=== PATIENT | female | born 1960 | race Caucasian/White ===

== ENCOUNTER 2020-11-14 17:02 | Emergency (ER) | payer OTHER, SELFPAY ==
[2020-11-14 17:06] VITALS: BP 141/73; PULSE 89; RESP 12; TEMP 36.6; O2SAT 98
[2020-11-14 17:12] VITALS: BP 141/73; PULSE 89; RESP 12; TEMP 36.6; O2SAT 98
--- NOTE | 2020-11-14 17:16 | ECG_ITS ---
SINUS BRADYCARDIA INCOMPLETE RIGHT BUNDLE BRANCH BLOCK BORDERLINE ST ABNORMALITY- ANTERIOR LEADS BASELINE ARTIFACT- II, III, AVR, AVL, AVF ABNORMAL ECG Electronically Signed On 11-15-2020 7:01:30 CDT by Walter Gonzalez D.O. NO PREVIOUS ECG AVAILABLE FOR COMPARISON [facility]
[2020-11-14 17:32] VITALS: BP 83/46; PULSE 68
[2020-11-14 17:32] LABS: Glucose Point of Care 100 (65-105)
--- NOTE | 2020-11-14 17:33 | ED.GENADULT ---
HPI - General Adult General Chief complaint: Unspecified Stated complaint: EYE REDNESS/DOESN'T FEEL RIGHT Time Seen by Provider: 11/14/20 17:05 Source: patient Mode of arrival: ambulatory Limitations: no limitations History of Present Illness HPI narrative: Uzma Caledrón is a 60 yo female with a PMH of hypothyroid and migraine who comes to express care with c/o not feeling well, non specific issues, Mild dizziness - initial BP slightly elevated but vague symptoms, EKG was run in patient's heart rate at 1-38. Blood pressure but her automatic monitor was 83/46. Patient was mildly obtunded, O2 sats decreased/MAP in the 60s. [place] called for transport to [facility] IV started by nurse EMS arrived and transported patient Related Data Home Medications Medication Instructions Recorded Confirmed levothyroxine 150 mcg capsule 150 mcg PO DAILY 05/23/20 05/23/20 sumatriptan succinate mg PO 11/14/20 Allergies Allergy/AdvReac Type Severity Reaction Status Date / Time Penicillins Allergy Unknown Verified 11/14/20 17:09 clarithromycin AdvReac Unknown NAUSEA Verified 05/23/20 11:06 Review of Systems Review of Systems: Narrative: CONSTITUTIONAL: Denies fever, chills, sweats. EYES: Denies visual changes, redness, discharge. ENT: Denies rhinorrhea, congestion, sore throat, otalgia. CARDIOVASCULAR: Denies chest pain, palpitations, edema. RESPIRATORY: Denies dyspnea, wheezing, cough GASTROINTESTINAL: Denies abdominal pain, nausea, vomiting, diarrhea. GENITOURINARY: Denies dysuria, hematuria, abnormal discharge SKIN: Denies rash or itching. NEUROLOGIC: Denies numbness, or focal weakness. [place] weak and out of sorts PSYCHIATRIC: Denies anxiety or depression. [facility] Past Medical History Medical History (Updated 11/14/20 @ 18:03 by Ania Ramirez CNP) Harmeet's disease Hypothyroidism Surgical History Surgical History History of lithotripsy Family History Family History Sibling Family history of thyroid disease Family history of mental disorder Depression Family history of lung cancer Family history of malignant neoplasm of breast in first degree relative Mother Family history of mental disorder Depression Hypertension Cerebrovascular accident Family history of diabetes mellitus in first degree relative Diabetes mellitus Father Family history of alcoholism Family history of liver disease Social History Social History Smoking status: Former smoker Smoking end date: 08/30/17 Alcohol intake: current Comments At time of signature, I agree with nursing past medical, surgical, social and family history. There is no relevant family history pertinent to the presenting complaint. Exam Narrative: Exam Narrative: GENERAL: This is a well-nourished, well-developed patient, in mild distress. States he feels weak and faint HEAD: normocephalic, atraumatic. EYES. Sclera clear/white. Vision is grossly intact. EARS: External ears normal, . Hearing grossly intact. NOSE: External nose normal without nasal discharge, nares without redness, no rhinorrhea. THROAT: Mucous membranes moist, NECK: Neck supple, CARDIOVASCULAR: Bradycardic rate and rhythm RESPIRATORY: Clear to auscultation. Breath sounds equal bilaterally. No wheezes, rales, or rhonchi. GASTROINTESTINAL: Abdomen soft, non-tender, SKIN: warm, intact with no suspicious lesions or rash, good texture and turgor. NEURO: awake, alert, and oriented to person, place and time. Patient is somewhat obtunded. EXTREMITIES: Normal range of motion. BACK: Nontender without deformity Course Course Emergency Course: Patient arrives at [facility] complaining of not feeling well and being lightheaded patient's blood pressure was initially elevated and heart rate was 89 at the time of EKG sh
--- NOTE | 2020-11-14 17:44 | PC.NURSE ---
Addendum entered by Vianney Johnson RN 11/14/20 18:09: 1710 is time rather than 1510 Original Note: 1510 patient sitting in triage and reports feeling not right and being sweaty; pt taken to room 1, patient placed supine on stretcher.
--- NOTE | 2020-11-14 17:48 | PC.NURSE ---
1718 pt placed on satellite project site monitor-heart rate 40, provider aware, EKG completed.
--- NOTE | 2020-11-14 17:50 | PC.NURSE ---
1720 EMS called for transfer.
--- NOTE | 2020-11-14 17:54 | PC.NURSE ---
1723 pt no longer diaphoretic, heart rate 61 per monitor. patient is awake and alert.
== END 2020-11-14 17:32 | disposition short-term general hospital (02) ==
PROVIDERS: Emergency Provider Nurse Practitioner; PCP Internal Medicine
DX: R00.1 Bradycardia, unspecified (principal); Z87.891 Personal history of nicotine dependence; E06.3 Autoimmune thyroiditis; E03.9 Hypothyroidism, unspecified
CPT/HCPCS: 82948; 93005; 99215; G0463; J7030

== ENCOUNTER 2020-11-14 17:54 | Emergency (ER) | payer OTHER, SELFPAY ==
[2020-11-14 17:51] VITALS: BP 114/56; PULSE 77; RESP 18; TEMP 36.7; O2SAT 97
--- NOTE | 2020-11-14 18:34 | ECG_ITS ---
Measurements Intervals [place] Rate: 40 P: 70 [place]: 144 QRS: 36 QRSD: 109 T: 59 QT: 437 QTc: 357 Interpretive Statements SINUS BRADYCARDIA INCOMPLETE RIGHT BUNDLE BRANCH BLOCK BORDERLINE ST ABNORMALITY- ANTERIOR LEADS BASELINE ARTIFACT- II, III, AVR, AVL, AVF BORDERLINE ECG Electronically Signed On 11-15-2020 7:01:11 CDT by Walter Gonzalez D.O.
--- NOTE | 2020-11-14 19:13 | PC.NURSE ---
per erp jacky, ok to wait on blood at this time. pt also refusing fluids.
[2020-11-14 19:51] LABS: Basophils Absolute Auto 0.1 K/mm3 (0.0-0.1); Basophils Percent Auto 0.4 % (0.2-1.2); Eosinophils Absolute Auto 0.2 K/mm3 (0-0.3); Eosinophils Percent Auto 1.8 % (0-4.4); Hematocrit 37.8 % (37.0-47.0); Hemoglobin 12.9 g/dL (12.0-15.0); Immature Granulocyte Absolute 0.03 K/mm3 (0.00-0.031); Immature Granulocyte Percent A 0.2 % (0-0.5); Lymphocytes Absolute Auto 1.89 K/mm3 (0.9-3.2); Lymphocytes Percent Auto 15.7 % (18.3-44.2); Mean Corpuscular HGB Conc 34.1 g/dl (32-36); Mean Corpuscular Hemoglobin 30.5 pg (26-34); Mean Corpuscular Volume 89.4 fl (80-100); Mean Platelet Volume 9.8 fl (7.4-10.4); Monocytes Absolute Auto 0.5 K/mm3 (0.1-0.6); Monocytes Percent Auto 4.5 % (2.6-8.5); Neutrophils Absolute Auto 9.3 K/mm3 (1.3-6.7); Neutrophils Percent Auto 77.4 % (45.5-73.1); Platelet Count Result 250 k/mm3 (150-375); Red Blood Count 4.23 M/mm3 (4.2-5.4); Red Cell Distribution Width 12.2 % (11.5-14.5)
--- NOTE | 2020-11-14 19:58 | ED.GENADULT ---
HPI - General Adult General Chief complaint: Recheck/Abnormal Lab/Rx Stated complaint: NEAR SYNCOPE Time Seen by Provider: 11/14/20 18:07 Source: patient, EMS and old records reviewed Mode of arrival: EMS Limitations: no limitations History of Present Illness HPI narrative: Patient is a 60-year-old female who presents to emergency department for evaluation of near syncopal episode that occurred earlier today while driving patient felt flushed like she was going to pass out went to the urgent care was evaluated found to have bradycardia was not feeling well decision was made to send her to the emergency department on arriving here she is feeling fine symptoms resolved notes that she had felt fine this morning notes that she had 1 similar occurrence 4 years ago. Patient is followed by Dr. Munoz. On arrival patient notes she feels much better and would like to go home she lives at home with her son and . Patient does not wish for fluids or other interventions at this time Related Data Home Medications Medication Instructions Recorded Confirmed levothyroxine 150 mcg capsule 150 mcg PO DAILY 05/23/20 05/23/20 sumatriptan succinate mg PO 11/14/20 Allergies Allergy/AdvReac Type Severity Reaction Status Date / Time Penicillins Allergy Unknown Verified 11/14/20 18:10 clarithromycin AdvReac Unknown NAUSEA Verified 11/14/20 18:10 Review of Systems Review of Systems: All systems reviewed & are unremarkable except as noted in HPI and below PMFSH Past Medical History Medical History (Updated 11/14/20 @ 20:09 by Jude Martin PA-C) Harmeet's disease Hypothyroidism Surgical History Surgical History History of lithotripsy Family History Family History Sibling Family history of thyroid disease Family history of mental disorder Depression Family history of lung cancer Family history of malignant neoplasm of breast in first degree relative Mother Family history of mental disorder Depression Hypertension Cerebrovascular accident Family history of diabetes mellitus in first degree relative Diabetes mellitus Father Family history of alcoholism Family history of liver disease Social History Social History Smoking status: Former smoker Smoking end date: 08/30/17 Alcohol intake: current Exam Narrative: Exam Narrative: GENERAL: Well-appearing, well-nourished, and in no acute distress. HEAD: Normocephalic, atraumatic. EYES: PERRLA and EOMI. ENT: Nares clear, no rhinorrhea or epistaxis. Mucous membranes moist. CHEST: Clear to auscultation. No respiratory distress. No wheezes rales or rhonchi HEART: Regular rate and rhythm. No murmur heard. Normal peripheral pulses. ABDOMEN: Soft, nontender, nondistended EXTREMITIES: Normal range of motion. No edema. SKIN: Warm, dry, no rash. NEURO: No focal deficits. Alert and oriented x3. Cranial nerves II through XII grossly intact PSYCH: Normal mood and affect. Course Course Emergency Course: ABCs and vital signs intact and stable no distress resting comfortably ambulating without any symptoms would like to be discharged home at this time will be going home with her son will follow with Dr. 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 Munoz who agrees the patient can be discharged home and follow in clinic Date: 11/14/20 Time: 20:08 Vital Signs Vital signs: Vital Signs Temperature 98.1 F 11/14/20 17:51 Pulse Rate 77 11/14/20 17:51 Respiratory Rate 18 11/14/20 17:51 Blood Pressure 114/56 L 11/14/20 17:51 Pulse Oximetry 97 11/14/20 17:51 Temperature 98.1 F 11/14/20 17:51 Pulse Rate 77 11/14/20 17:51 Respiratory Rate 18 11/14/20 1
[2020-11-14 20:06] LABS: Anion Gap 6 mmol/L (8-16); Blood Urea Nitrogen 19 mg/dL (7-17); Calcium 8.8 mg/dL (8.4-10.2); Carbon Dioxide 25 mmol/L (22-30); Chloride 108 mmol/L (98-107); Estimated CRCL calculation 58 ml/min; Estimated Glomerular Filt Rate > 60; Glucose 143 mg/dL (65-105); Potassium 4.2 mmol/L (3.4-5.0); Sodium 139 mmol/L (137-145)
[2020-11-14 20:21] VITALS: BP 118/73; PULSE 78; RESP 16; TEMP 36.7; O2SAT 98
[2020-11-14 20:28] LABS: Add Urine Microscopic? YES; Appearance Urine Clear (Clear); Bacteria Urine Trace /hpf; Bilirubin Urine Negative (Negative); Blood Urine Negative (Negative); Color Urine Yellow (Yellow); Glucose Urine UA Negative (Negative); Ketones Urine Negative (Negative); Leukocyte Esterase Ur Trace LEU/UL (Negative); Mucus Urine Rare /lpf; Nitrate Urine Negative (Negative); Protein Urine Negative (Negative); RBC Urine 0-2 /hpf (0-2); Specific Grav Ur 1.012 (1.001-1.035); Squamous Epithelial Cell Urine Occasional /hpf (Few)
== END 2020-11-14 20:22 | disposition home or self-care (01) ==
PROVIDERS: Emergency Medicine Emergency Medical Services; Emergency Provider Emergency Medicine; PCP Internal Medicine
DX: R55 Syncope and collapse (principal); E06.3 Autoimmune thyroiditis; E03.9 Hypothyroidism, unspecified; Z87.891 Personal history of nicotine dependence
CPT/HCPCS: 36415; 80048; 81001; 85025; 93005; 99283

== ENCOUNTER 2020-11-22 13:44 | Outpatient (CLI) | payer OTHER, SELFPAY ==
--- NOTE | ~2020-11-22 | US_ITS ---
EXAMINATION: US thyroid DATE: 11/22/2020 14:27 INDICATION: Goiter. Thyroid nodule. TECHNIQUE: Multiple ultrasound images of the thyroid were obtained. COMPARISON: 06/13/2012 FINDINGS: The right thyroid lobe measures 7.7 x 2.1 x 2.5 cm. The left thyroid lobe measures 7.0 x 2.3 x 2.5 c m. There heterogeneous echogenicity with throughout the thyroid. 9 x 8 x 6 mm hyperechoic region whi ch could represent a wider than tall solid nodule with ill-defined margins and without echogenic foci (TI-RADS 3, mildly suspicious , FNA if >=2.5 cm, annual followup is >=1.5 cm) the inferior right thy roid. Also at the inferior right thyroid is a wider than tall 8 x 5 x 8 mm solid very hypoechoic lobe nodule with lobular margins and without echogenic foci. (TI-RADS 5, highly suspicious , FNA if >=1.0 cm, annual followup is >0.5 cm). IMPRESSION: 1. A couple subcentimeter TI RADS 3 and TI RADS 5 nodules in the inferior right thyroid lobe for whic h annual follow-up ultrasound would be recommended. Reviewed, dictated and finalized at location A. IMPRESSION: 1. A couple subcentimeter TI RADS 3 and TI RADS 5 nodules in the inferior right thyroid lobe for which annual follow-up ultrasound would be recommended.
--- NOTE | 2020-11-25 12:09 | WPDHOLTEREM ---
Holter/Event Monitor Holter/Event Monitor Date of procedure: 11/22/20 Procedure Type: 24 hour holter monitor Indications: Syncope Conclusion: 1. 24 hour holter monitor on 11/22/20. 2. Underlying rhythm is sinus rhythm. HR range 60-113 bpm; average HR 81 bpm. 3. There are 5,980 premature supraventricular complexes, 566 supraventricular bigeminy and 98 supraventricular trigeminy. No supraventricular tachycardia. 4. There are 157 premature ventricular complexes. No ventricular tachycardia. 5. No sinoatrial or atrioventricular blocks. No significant pauses greater than 2 seconds. 6. No symptoms available for correlation.
== END 2020-11-22 13:45 | disposition home or self-care (01) ==
PROVIDERS: PCP Internal Medicine; Visit Provider Internal Medicine
DX: R55 Syncope and collapse (principal); E04.9 Nontoxic goiter, unspecified
CPT/HCPCS: 76536; 93225; 93226

== ENCOUNTER 2022-03-31 13:33 | Outpatient (CLI) | payer OTHER, SELFPAY ==
--- NOTE | ~2022-03-31 | US_ITS ---
EXAMINATION: US thyroid DATE: 03/31/2022 14:10 INDICATION: Goiter. TECHNIQUE: Multiple ultrasound images of the thyroid were obtained. COMPARISON: Ultrasound 11/22/2020, 07/14/2012 FINDINGS: The right thyroid lobe measures 6.5 x 2.7 x 2.4 cm. The left thyroid lobe measures 6.2 x 2.4 x 2.3 c m. The thyroid is demonstrates diffusely heterogeneous echogenicity. Vascularity is increased. In th e right thyroid lobe, there is a 7 mm solid, very hypoechoic, wider than tall nodule with ill-defined margin with peripheral calcifications (TI-RADS TR5). IMPRESSION: 1. Small thyroid nodule. Thyroid ultrasound is recommended in one year. 2. Heterogeneous, hypervascular thyroid, consistent with chronic lymphocytic (Harmeet) thyroiditis. Reviewed, dictated and finalized at location A. IMPRESSION: 1. Small thyroid nodule. Thyroid ultrasound is recommended in one year. 2. Heterogeneous, hypervascular thyroid, consistent with chronic lymphocytic (H ashimoto) thyroiditis.
== END 2022-03-31 13:34 | disposition home or self-care (01) ==
PROVIDERS: PCP Internal Medicine; Visit Provider Internal Medicine
DX: E04.1 Nontoxic single thyroid nodule (principal)
CPT/HCPCS: 76536

== ENCOUNTER → 2022-04-16 13:52 | Outpatient (CLI) | payer OTHER, SELFPAY ==
--- NOTE | ~2022-04-16 | MM_ITS ---
EXAMINATION: MM screening j carlos BI w sherly HISTORY: Screening mammogram TECHNIQUE: Craniocaudal and mediolateral oblique 3-D tomosynthesis images were obtained and synthetic 2-D images were generated. CAD analysis was submitted and interpreted. COMPARISON: 01/13/2018, 09/12/2014, 06/16/2012 bilateral screening mammogram examinations BREAST PARENCHYMAL COMPOSITION: FINDINGS: There is an approximately 3 mm opacity with radiating lines, situated in the posterior oute r right breast on craniocaudal view, at approximately mid lateral right breast. Diagnostic right mamm ogram and right breast ultrasound examination are recommended Otherwise there is no evidence of suspicious mass, calcification, or architectural distortion to sugg est malignancy in either breast. There has been no other suspicious interval change. IMPRESSION: 1. 3 mm asymmetry with radiating spicules at posterior outer right breast 2. Diagnostic right mammogram and right breast ultrasound examination are recommended. BI-RADS Category 0: Incomplete: Needs additional imaging evaluation. Reviewed, dictated and finalized at location A. IMPRESSION: 1. 3 mm asymmetry with radiating spicules at posterior outer right breast 2. Diagnostic right mammogram and right breast ultrasound examination are recom mended. BI-RADS Category 0: Incomplete: Needs additional imaging evaluation.
--- NOTE | ~2022-04-16 | DEXA_ITS ---
Bone Density Report Name: DANNI FLORES Age: 61 Sex: Female Ethnicity: White Date of : 1960 Indication: postmenopausal; screening for osteoporosis; Referring Provider: WHITLEY CARR Study: Bone densitometry was performed. Exam Date: April 16, 2022 Accession number: [id number] Bone Density: Region BMD T-score Z-score Classification AP Spine (L1-L4) 0.774 -2.5 -0.9 Osteoporosis Femoral Neck (Left) 0.607 -2.2 -0.8 Osteopenia Total Hip (Left) 0.708 -1.9 -0.8 Osteopenia Femoral Neck (Right) 0.628 -2.0 -0.6 Osteopenia Total Hip (Right) 0.771 -1.4 -0.3 Osteopenia Total Hip Mean 0.740 -1.7 -0.6 Osteopenia World Health Organization criteria for BMD impression classify patients as: Normal (T-score at or above -1.0), Osteopenia (T-score between -1.0 and -2.5), or Osteoporosis (T-score at or below -2.5). 10-year Fracture Risk: FRAX not reported because: Some T-score for Spine Total or Hip Total or Femoral Neck at or below -2.5 Clinical Information Provided by Patient: Patient maximum height was 65.0 Menopause Age: 37 No regular weight bearing exercise Drinks caffeinated beverages Onset of menses at age 14 Number of children 2 Impression: The patient has osteoporosis, based on the Total Spine T-score. Discussion: INCREASED RISK OF FRACTURE. BONE DENSITY IS UNDESIRABLY LOW AT ONE OR MORE SKELETAL SITES, CONSISTENT WITH POSTMENOPAUSAL OSTEOPOROSIS. This patient's lowest T-score meets the World Health Organization's (WHO) criteria for osteoporosis at one or more sites (T-score -2.5 or below). In untreated patients, the risk of osteoporotic fracture increases approximately two-fold for each 1.0 SD decrease in T-score. Low bone density is not the only risk factor for fracture; also consider factors such as patient's age, frailty or poor health, risk of falling, risk of injury, previous osteoporotic fracture, family history of osteoporosis, cigarette smoking, low body weight, etc. Not everyone with low bone mineral density has osteoporosis; osteomalacia and other metabolic bone disorders should also be considered. Patients who have osteoporosis should be evaluated for specific diseases and conditions (secondary causes) that may cause or contribute to bone loss. The [place] [employer] Clinical Endocrinologists (AACE) and National Osteoporosis Foundation (NOF) recommend pharmacologic intervention for all postmenopausal women whose T-score is in this range. The patient should follow a healthful lifestyle (good nutrition with adequate calcium and vitamin D, and appropriate weight-bearing exercise). Follow-Up: Consider a repeat BMD and Vertebral Fracture Assessment (VFA) exam in 2 years or sooner if medically necessary, to reassess this patient's status. Reported by: NELLI on 04/16/2022 2:19:00 PM.
== END ==
PROVIDERS: PCP Internal Medicine; Visit Provider Obstetrics & Gynecology
DX: Z12.31 Encounter for screening mammogram for malignant neoplasm of breast (principal); Z78.0 Asymptomatic menopausal state; R92.8 Other abnormal and inconclusive findings on diagnostic imaging of breast; M81.0 Age-related osteoporosis without current pathological fracture; M85.852 Other specified disorders of bone density and structure, left thigh; M85.851 Other specified disorders of bone density and structure, right thigh
CPT/HCPCS: 77063; 77067; 77080

== ENCOUNTER → 2022-04-29 08:49 | Outpatient (CLI) | payer OTHER, SELFPAY ==
--- NOTE | ~2022-04-29 | MM_ITS ---
EXAMINATION: MM diagnostic j carlos RT w sherly HISTORY: Right breast asymmetry on screening mammogram TECHNIQUE: Additional 3-D tomosynthesis images of the right breast were performed and synthetic 2-D i mages were generated. CAD analysis was submitted and interpreted. COMPARISON: 04/16/2022, 01/13/2018, 09/12/2014, 06/16/2012 FINDINGS: There is a return to baseline fibroglandular appearance with spot compression of the right breast in the area questioned on screening mammogram. IMPRESSION: 1. No mammographic evidence of malignancy. 2. Recommend routine screening mammography in one year. BI-RADS Category 1: Negative Reviewed, dictated and finalized at location A.
== END ==
PROVIDERS: PCP Internal Medicine; Visit Provider Obstetrics & Gynecology
DX: R92.8 Other abnormal and inconclusive findings on diagnostic imaging of breast (principal)
CPT/HCPCS: 77061; 77065; G0279

== ENCOUNTER 2023-07-20 08:02 | Outpatient (CLI) | payer OTHER, BC, SELFPAY ==
--- NOTE | ~2023-07-20 | MM_ITS ---
EXAMINATION: MM screening j carlos BI w sherly HISTORY: Screening mammogram TECHNIQUE: Craniocaudal and mediolateral oblique 3-D tomosynthesis images were obtained and synthetic 2-D images were generated. CAD analysis was submitted and interpreted. COMPARISON: 04/29/2022 diagnostic right mammogram, reported negative 04/16/2022, 01/13/2018 bilateral screening mammogram examinations BREAST PARENCHYMAL COMPOSITION: The breasts are heterogeneously dense, which may obscure small masses . FINDINGS: There is no evidence of suspicious mass, calcification, or architectural distortion to sugg est malignancy in either breast. There has been no suspicious interval change. IMPRESSION: 1. No mammographic evidence of malignancy. 2. Recommend routine screening mammography in one year. BI-RADS Category 1: Negative Reviewed, dictated and finalized at location A. [facility]
== END 2023-07-20 08:03 | disposition home or self-care (01) ==
LOC: CHSIMG 08:08
PROVIDERS: PCP Internal Medicine; Visit Provider Obstetrics & Gynecology
DX: Z12.31 Encounter for screening mammogram for malignant neoplasm of breast (principal)
CPT/HCPCS: 77063; 77067

== ENCOUNTER 2024-08-15 12:19 | Outpatient (CLI) | payer OTHER, BC, SELFPAY ==
--- NOTE | ~2024-08-15 | MM_ITS ---
EXAMINATION: MM screening j acrlos BI w sherly HISTORY: Screening TECHNIQUE: Craniocaudal and mediolateral oblique 3-D tomosynthesis images were obtained and synthetic 2-D images were generated. CAD analysis was submitted and interpreted. COMPARISON: Comparison to multiple prior studies sequentially, with oldest reviewed study dated 09/12. BREAST PARENCHYMAL COMPOSITION: Dense: The breasts are heterogeneously dense, which may obscure small masses FINDINGS: There is no evidence of suspicious mass, calcification, or architectural distortion to sugg est malignancy in either breast. There has been no suspicious interval change. IMPRESSION: 1. No mammographic evidence of malignancy. 2. Recommend routine screening mammography in one year. BI-RADS Category 1: Negative Reviewed, dictated and finalized at location B. ANTILE REPORTER
== END 2024-08-15 12:20 | disposition home or self-care (01) ==
LOC: CHSIMG 12:21
PROVIDERS: PCP Internal Medicine; Visit Provider Obstetrics & Gynecology
DX: Z12.31 Encounter for screening mammogram for malignant neoplasm of breast (principal)
CPT/HCPCS: 77063; 77067

== ENCOUNTER 2025-08-23 12:02 | Emergency (ER) | payer OTHER, BC, SELFPAY ==
--- NOTE | ~2025-08-23 | XR_ITS ---
EXAMINATION: XR chest 2V 08/23/2025 15:47 INDICATION: Cough PROCEDURE: 2 view chest COMPARISON: Comparison to multiple prior studies sequentially, with oldest reviewed study dated 03/04/2011. FINDINGS: The lungs are clear. The cardiomediastinal silhouette is within normal limits. There are no pleural effusions. There is no pneumothorax suspected. Chronic apical pleural thickening/scarring. The lungs are hyperinflated which is consistent with, but not diagnostic of chronic obstructive pulmonary disease. IMPRESSION: 1: NO ACUTE CARDIOPULMONARY DISEASE. Reviewed, dictated and finalized at location [facility]. [facility]
[2025-08-23 12:05] VITALS: BP 151/76; PULSE 102; RESP 16; TEMP 36.7; O2SAT 98
[2025-08-23 13:14] VITALS: BP 120/75; PULSE 88; RESP 18; O2SAT 94
--- NOTE | 2025-08-23 13:14 | PC.NURSE ---
Pt. reports recent exposure to strep. strep test protocoled.
[2025-08-23 13:48] LABS: Strep Group A RT-PCR NOT DETECTED (Negative)
[2025-08-23 14:00] LABS: Influenza A QL RT-PCR Positive (Negative); Influenza B QL RT-PCR Negative (Negative); RSV RNA, RT-PCR Negative (Negative); SARS-CoV-2 RNA PCR Negative (Negative)
[2025-08-23 14:02] LABS: Hematocrit 38.4 % (37.0-47.0); Hemoglobin 12.9 g/dL (12.0-15.0); Immature Granulocyte Percent A 0.2 % (0-0.5); Lymphocytes Absolute Auto 1.02 K/mm3 (0.9-3.2); Mean Corpuscular HGB Conc 33.6 g/dl (32-36); Mean Corpuscular Hemoglobin 30.7 pg (26-34); Mean Corpuscular Volume 91.4 fl (80-100); Nucleated Red Blood Cells Absolute Auto 0.000 K/mm3 (0.0-0.012); Nucleated Red Blood Cells Perc 0.0 % (0.0-0.2); Platelet Count Result 239 k/mm3 (150-375); Red Blood Count 4.20 M/mm3 (4.2-5.4); White Blood Count 6.0 K/mm3 (4.5-10.0)
[2025-08-23 14:16] LABS: Alanine Aminotransferase 20 U/L (6-35); Albumin Level 4.5 g/dL (3.5-5.1); Alkaline Phosphatase 70 U/L (38-126); Anion Gap 11 mmol/L (4-12); Aspartate Amino Transferase 31 U/L (14-36); Bilirubin,Total 0.6 mg/dL (0.2-1.3); Blood Urea Nitrogen 12 mg/dL (7-17); CRP 0.7 mg/dL (<1.0); Calcium 8.9 mg/dL (8.4-10.2); Carbon Dioxide 22 mmol/L (22-30); Chloride 104 mmol/L (98-107); Estimated CRCL calculation 49 ml/min; Estimated Glomerular Filt Rate > 60; Glucose 90 mg/dL (65-110); Potassium 4.0 mmol/L (3.4-5.0); Sodium 137 mmol/L (137-145); Total Protein 7.8 g/dL (6.3-8.2)
--- NOTE | 2025-08-23 15:26 | ED.GENADULT ---
HPI - General Adult General Chief complaint: Upper Respiratory Infection Stated complaint: cough Time Seen by Provider: 08/23/25 12:19 History of Present Illness HPI narrative: Patient is a 65-year-old female who presents ER with cough. Associated with headache and runny nose. Ongoing for 5 days. No documented fever. has cancer and received chemotherapy. She may been exposed to strep in her family. She did get her flu shot. Patient also noticed some prominence of the vein in her left temporal region. No loss of vision in her eye or visual change. Related Data Home Medications ?Medication ?Instructions ?Recorded ?Confirmed ?Last Taken ?Type levothyroxine 150 mcg capsule 150 mcg PO DAILY 05/23/20 08/11/23 Unknown History sumatriptan succinate 100 mg tablet mg PO 11/14/20 08/11/23 Unknown History Allergies Allergy/AdvReac Type Severity Reaction Status Date / Time Penicillins Allergy Unknown Verified 08/11/23 10:37 clarithromycin AdvReac Unknown NAUSEA Verified 08/11/23 10:37 Review of Systems Review of Systems: All systems reviewed & are unremarkable except as noted in HPI and below Constitutional: Constitutional: Reports no additional constitutional complaints Eyes: Eyes: Reports no additional eye complaints ENT: Reports system reviewed and no additional complaints, except as documented Cardiovascular: Cardiovascular: Reports no additional cardiovascular complaints Respiratory: Respiratory: Reports no additional respiratory complaints [facility] Past Medical History Medical History Harmeet's disease Hypothyroidism Osteoporosis Surgical History Surgical History History of lithotripsy S/P cholecystectomy S/P foot surgery Family History Family History Sibling Family history of thyroid disease Family history of mental disorder Depression Family history of lung cancer Family history of malignant neoplasm of breast in first degree relative Mother Family history of mental disorder Depression Hypertension Cerebrovascular accident Family history of diabetes mellitus in first degree relative Diabetes mellitus Father Family history of alcoholism Family history of liver disease Social History Social History Smoking status: Former smoker Smoking end date: 08/30/17 Alcohol intake: current Exam Narrative: GENERAL: Well-appearing, well-nourished, and in no acute distress. HEAD: Normocephalic, atraumatic. EYES: PERRL and EOMI. Visual acuity 20/40 in each eye. ENT: Mucous membranes moist. No tenderness the temporal area bilaterally, no prominence of the temporal artery. CHEST: Clear to auscultation. No respiratory distress. HEART: Regular rate and rhythm. Normal peripheral pulses. EXTREMITIES: Normal range of motion. No edema. SKIN: Warm, dry, no rash. NEURO: Alert and oriented x3. PSYCH: Normal mood and affect. Course Course Emergency Course: Patient resting comfortably. Informed of her lab results. CBC unremarkable. CRP negative. Normal BMP. ESR barely elevated at 22. Normal visual acuities. Positive influenza test. I do not think patient has temporal arteritis. Recommend follow-up with PCP. Outside the window for treatment with Tamiflu. Vital Signs Vital signs: Vital Signs Temperature 98.1 F 08/23/25 12:05 Pulse Rate 102 H 08/23/25 12:05 Respiratory Rate 16 08/23/25 12:05 Blood Pressure 151/76 H 08/23/25 12:05 Pulse Oximetry 98 08/23/25 12:05 Temperature 98.1 F 08/23/25 12:05 Pulse Rate 75 08/23/25 15:31 Respiratory Rate 18 08/23/25 15:31 Blood Pressure 132/72 08/23/25 15:31 Pulse Oximetry 97 08/23/25 15:31 MDM Differential Diagnosis Differential Diagnosis: Influenza, COVID, pneumonia, sepsis, temporal arteritis Lab Data 08/23/25 13:54 08/23/25 13:54 Labs: Lab Results 08/23/25 08/23/25 Range/Units 13:18 13:54 WBC 6.0 (4.5-10.0) K/mm3 RBC 4.20 (4.2-5.4) M/mm3 Hgb 12.9 (12.0-15.0) g/dL Hct 38.4 (37.0-47.0) % MCV 91.4 (80-100) fl MCH 30.7 (26-34) pg MCHC 33.6 (32-36) g/dl RDW 12.6 (11.5-14.5) % Plt Count 239 (150-375) k/mm3 MPV 9.4 (7.4-10.4) fl Immature Gran % (Auto) 0.2 (0-0.5) % Neut % (Auto) 70.1 (45.5-73.1) % Lymph % (Auto) 16.9 L (18.3-44.2) % [place] % (Auto) 10.4 H (2.6-8.5) % Eos % (Auto) 1.7 (0-4.4) % Baso % (Auto) 0.7 (0.2-1.2) % Lymph # (Auto) 1.02 (0.9-3.2) K/mm3 [place] # (Auto) 0.6 (0.1-0.6) K/mm3 Eos # (Auto) 0.1 (0-0.3) K/mm3 Baso # (Auto) 0.0 (0.0-0.1) K/mm3 Abs Immat Gran (auto) 0.01 (0.00-0.031) K/mm3 Absolute Neuts (auto) 4.2 (1.3-6.7) K/mm3 Absolute Nucleated RBC 0.000 (0.0-0.012) K/mm3 Nucleated RBC % 0.0 (0.0-0.2) % ESR 22 H (0-20) mm/hr Sodium 137 (137-145) mmol/L Potassium 4.0 (3.4-5.0) mmol/L Chloride 104 (98-107) mmol/L Carbon Dioxide 22 (22-30) mmol/L Anion Gap 11 (4-12) mmol/L BUN 12 D (7-17) mg/dL Creatinine 0.85 (0.7-1.0) mg/dL Estim Creat Clear Calc 49 ml/min Estimated GFR > 60 (59 - ) Glucose 90 (65-110) mg/dL Calcium 8.9 (8.4-10.2) mg/dL Total Bilirubin 0.6 (0.2-1.3) mg/dL AST 31 (14-36) U/L ALT 20 (6-35) U/L Alkaline Phosphatase 70 (38-126) U/L C-Reactive Protein 0.7 (<1.0) mg/dL Total Protein 7.8 (6.3-8.2) g/dL Albumin 4.5 (3.5-5.1) g/dL Influenza A (RT-PCR) Positive A (Negative) Influenza B (RT-PCR) Negative (Negative) RSV (RT-PCR) Negative (Negative) SARS-CoV-2 RNA (RT-PCR) Negative (Negative) Group A Strep (PCR) Not detected (Negative) Imaging Data Radiologist's impression: ITS Impressions Chest X-Ray 08/23/25 16:04 IMPRESSION: 1: NO ACUTE CARDIOPULMONARY DISEASE. Discharge Plan Discharge Clinical Impression: Influenza Patient Disposition: Home Condition: Stable Instructions: Influenza (ED) Additional Instructions: As discussed you have a viral illness. Unfortunately there are no specific medications we can give you to make the illness end faster. Antibiotics do not work for viral illnesses. However, you can take Acetaminophen or Ibuprofen to help with fevers and pain. Stay well hydrated and rested. Return to the emergency department if your fevers and chills continue to worse after 5 days, if you develop worsening cough with thick sputum, or are unable to stay hydrated. Contact your primary care provider in the next few days for a re-evaluation and to make sure your symptoms are improving. Patient Language: Citizen Of [place] Prescriptions: New fluticasone propionate [Allergy Relief (fluticasone)] 50 mcg/actuation spray,suspension 1 spray intranasal DAILY Qty: 16 0RF Rx Instructions: administer into each nostril benzocaine 15 mg lozenge 15 mg mucous membrane Q2H PRN (Reason: sore throat) Qty: 18 0RF No Action sumatriptan succinate 100 mg tablet PO levothyroxine 150 mcg capsule 150 mcg PO DAILY Follow-up/Referrals: Alexander,Teddy Mccullough MD [Primary Care Provider] - 1 Week
[2025-08-23 15:31] VITALS: BP 132/72; PULSE 75; RESP 18; O2SAT 97
== END 2025-08-23 17:00 | disposition home or self-care (01) ==
PROVIDERS: Emergency Provider Emergency Medicine; PCP Internal Medicine
DX: J10.1 Influenza due to other identified influenza virus with other respiratory manifestations (principal); Z20.822 Contact with and (suspected) exposure to COVID-19; E06.3 Autoimmune thyroiditis; E03.9 Hypothyroidism, unspecified; M81.0 Age-related osteoporosis without current pathological fracture; Z87.891 Personal history of nicotine dependence
CPT/HCPCS: 36415; 71046; 80053; 85025; 85652; 86140; 87637; 87651; 99283